=== PATIENT | male | born 1965 | race Caucasian/White ===

== ENCOUNTER → 2016-07-14 | Outpatient (CLI) | payer OTHER | LOC: BMCIMAGING 15:21 | PROVIDERS: ATTEND Internal Medicine | DX: I82.811 Embolism and thrombosis of superficial veins of right lower extremity (principal) ==

== ENCOUNTER → 2016-08-06 | Outpatient (CLI) | payer OTHER | LOC: FIMAGING 07:52 | PROVIDERS: ATTEND Radiology Diagnostic Radiology | DX: Z01.818 Encounter for other preprocedural examination (principal); I83.813 Varicose veins of bilateral lower extremities with pain; Z86.718 Personal history of other venous thrombosis and embolism ==

== ENCOUNTER 2016-10-07 07:51 | Day surgery (SDC) | payer OTHER ==
[~2016-10-07 07:51] MED LIST: NS 1,000 ML IV ONE; ONDANSETRON 4 MG/2 ML VIAL IVP ONE; ceFAZolin 2 GM/DEXTROSE 100 ML IV ONE
[2016-10-07] MEDS ORDERED: SODIUM TETRADECYL SULFATE 60 MG/2 ML VIAL IV ONE (08:25)
[2016-10-07] MEDS ORDERED: LIDO/EPI 1% **for epidural** 30 ML SDV ONE (08:26)
[2016-10-07] MEDS ORDERED: MIDAZOLAM 2 MG/2 ML VIAL ONE ×2 (08:41→09:03)
[2016-10-07] MEDS ORDERED: fentaNYL 100 MCG/2 ML INJ ONE (08:41)
[2016-10-07] MEDS ORDERED: FLUMAZENIL 0.5 MG/5 ML MDV IVP ONE (09:02)
[2016-10-07] MEDS ORDERED: NALOXONE HCL 0.4 MG/ML INJ ONE (09:02)
[2016-10-07 10:51] VITALS: BP 124/81; PULSE 50; O2SAT 100
== END 2016-10-07 13:32 | disposition home or self-care (01) ==
LOC: FIMAGING 07:51
PROVIDERS: ATTEND Radiology Diagnostic Radiology
PROC: 06DY3ZZ Extraction of Lower Vein, Percutaneous Approach (ICD-10-PCS; principal; 2016-10-07 10:35)
PROC: 065Q3ZZ Destruction of Left Saphenous Vein, Percutaneous Approach (ICD-10-PCS; principal; 2016-10-07 10:35)
PROC: 3E033TZ Introduction of Destructive Agent into Peripheral Vein, Percutaneous Approach (ICD-10-PCS; principal; 2016-10-07 10:35)
DX: I83.812 Varicose veins of left lower extremity with pain (principal)
CPT/HCPCS: J0690; J2250; J2310; J3010

== ENCOUNTER 2016-10-08 07:43 | Day surgery (SDC) | payer OTHER ==
[2016-10-08] MEDS ORDERED: LIDO/EPI 1% **for epidural** 30 ML SDV ONE (08:12)
[2016-10-08] MEDS ORDERED: SODIUM TETRADECYL SULFATE 60 MG/2 ML VIAL IV ONE (08:12)
[2016-10-08] MEDS ORDERED: NS 1,000 ML IV ONE (08:20)
[2016-10-08] MEDS ORDERED: ceFAZolin 2 GM/DEXTROSE 100 ML IV ONE (08:20)
[2016-10-08] MEDS ORDERED: ONDANSETRON 4 MG/2 ML VIAL IVP ONE (08:20)
[2016-10-08] MEDS ORDERED: fentaNYL 100 MCG/2 ML INJ ONE (09:20)
[2016-10-08] MEDS ORDERED: MIDAZOLAM 2 MG/2 ML VIAL ONE (09:20)
[2016-10-08] MEDS ORDERED: HYDROCODONE/APAP 5/325 TAB PO PRN (11:29)
[2016-10-08] MEDS ORDERED: ONDANSETRON DISINTEGRATING 4 MG TAB PO PRN (11:29)
[2016-10-08] MEDS ORDERED: ONDANSETRON 4 MG/2 ML VIAL IVP PRN (11:29)
[2016-10-08] MEDS ORDERED: IBUPROFEN 200 MG TAB PO ONE (11:30)
[2016-10-08 12:11] VITALS: BP 110/69; O2SAT 97
== END 2016-10-08 14:30 | disposition home or self-care (01) ==
LOC: FIMAGING 07:43
PROVIDERS: ATTEND Radiology Diagnostic Radiology
PROC: 065P3ZZ Destruction of Right Saphenous Vein, Percutaneous Approach (ICD-10-PCS; principal; 2016-10-08 11:15)
PROC: 06BP3ZZ Excision of Right Saphenous Vein, Percutaneous Approach (ICD-10-PCS; principal; 2016-10-08 11:15)
DX: I83.811 Varicose veins of right lower extremity with pain (principal)
CPT/HCPCS: J0690; J2250; J3010